=== PATIENT | male | born 1950 | race Caucasian/White ===

== ENCOUNTER → 2018-09-24 | Outpatient (CLI) | payer OTHER | LOC: ULTRA 07:28 | DX: K80.20 Calculus of gallbladder without cholecystitis without obstruction (principal); N13.30 Unspecified hydronephrosis ==

== ENCOUNTER 2019-04-10 05:18 | Inpatient (IN) | payer OTHER ==
[~2019-04-10] VITALS: Ht 188 cm; Wt 121.7 kg
--- NOTE | ~2019-04-10 | O ---
[facility] [place] [address] OPERATIVE REPORT Name: DIVYA STEPHENS Room #: 418-P [facility] M..#: [id number] Admission: 04/10/19 ������������������ Attend Phys: Juan M Mcgraw MD Discharge: ������������������ Date of : 48 Report #: [id number] THIS REPORT FOR: //name// CC: Juan M Thomas MD DATE OF SERVICE: 04/10/2019 PREOPERATIVE DIAGNOSIS: Cholecystitis with cholelithiasis. POSTOPERATIVE DIAGNOSIS: Cholecystitis with cholelithiasis with severe fibrotic reaction. PROCEDURE: Laparoscopic cholecystectomy with cholangiogram and repair of choledochotomy with T-tube. SURGEON: Juan M Mcgraw MD. ANESTHESIA: General. ESTIMATED BLOOD LOSS: 75 mL. FINDINGS: The common bile duct was taken for the cystic duct. Intraoperative cholangiogram showed the dye did flow distally, but not proximally. At this point, the choledochotomy was recognized. The common bile duct was then repaired over T-tube. The common duct was not divided. T-tube cholangiogram looked like good placement of the T-tube. PROCEDURE NOTE: With the patient under general anesthesia, abdomen was prepped and draped in sterile fashion. Curved incision was made above the umbilicus. Fascia identified, grasped with hemostat. Timeout was performed. IV antibiotic was given. The fascia was grasped with hemostat. Fascia was then opened under visualization in midline. 0 Vicryl suture placed on the fascia for retraction. Using the 0 Vicryl suture, abdomen was lifted anteriorly. Veress needle was then placed through peritoneum. Abdominal cavity was insufflated by CO2. After creating pneumoperitoneum, 11 mm trocar was placed into the pneumoperitoneum without harm to underlying tissue. The gallbladder was identified. The gallbladder is contracted and fibrotic. Adhesions were taken down from it. When the gallbladder was lifted cephalad, there was quite a bit of fat at the proximal part of the gallbladder. This fat was dissected close to the gallbladder. A ductal structure was then isolated. The gallbladder was noted to have a stone at the neck of the gallbladder. The cystic duct was found close to the neck of the gallbladder. The cystic duct is isolated. A clip was placed at the cystic duct gallbladder junction. Opening was made in the cystic duct with a scissor. Cholangiogram catheter was placed. The cholangiogram catheter [address] [address] OPERATIVE REPORT Name: DIVYA STEPHENS Room #: 418-P [facility] M..#: [id number] Admission: 04/10/19 ������������������ Attend Phys: Juan M Mcgraw MD Discharge: ������������������ Date of : 48 Report #: [id number] was held with clip. The fluoroscopic cholangiogram showed dye did flow distally, but not proximally. At this point, we realized that the cystic duct was actually the common duct. The clips were removed. The catheter was removed. The opening in the common duct was then visualized. Besides the clips placement in the cystic duct and the common duct, dissected posteriorly, has remained intact. At this point, the gallbladder was dissected down distal to the common duct area and dense fibrosis identified. Dissection was carried out with laparoscopic Peanut to push the neck of the gallbladder laterally. There was a stone identified here. The stone appears to be stuck. The gallbladder looks like it is completely contracted. With pushing and dissection, there is a structure identified laterally, which I thought could be cystic duct, but upon further dissection later on, this was determined to be the cystic artery. A 14-Equatorial [place] T-tube was brought in laparoscopically. This had been trimmed. I put one of the limbs up into the proximal part of the common, so I can kind of tell the common duct was located because at this point, the gallbladder was still stuck or tethered to the common duct. Further blunt dissections pushing the gallbladder away. The cystic duct was located more anterior and then quite densely stuck by the inflammatory reaction. I decided to go ahead and take the stone out also. At this point, I decided to go ahead and put the T-tube in the common duct. The 14 did not seem to fit very well. I went ahead and got a 12-[place]atorial [place] T-tube. The 14 was removed. Again, the T-tube was fashioned and I was able to get the T-tube inside the defect of the common duct. It seated pretty well. I did place a suture superiorly and also inferiorly. This was placed laparoscopically with 4-0 PDS on a small RB taper needle. The knot was created with a knot pusher. I finally got pretty good seal around the T-tube. I was able to then finally dissect out the rest of the gallbladder, removed that stone. This allowed little bit better visualization of the neck of the gallbladder. The artery was identified lateral posteriorly. This was clipped x 2 proximally and then divided. When I divided, I could tell that there was blood from this consistent with backbleeding from the artery. The cystic duct was then eventually teased out also and it was quite small structure. This was clipped x 2 proximally, 1 distally and then divided. The rest of the gallbladder was then freed, placed in specimen bag. The stone that I removed was placed in specimen bag along with the gallbladder retrieved through the 11 mm trocar site, did have to enlarge the incision slightly to get the thick fibrotic gallbladder out. A T-tube cholangiogram was then obtained. The end of the T-tube was brought out through the medial 5-mm trocar. Contrast was injected. With this contrast injection, I can see the proximal ducts filled out. There was also clear bile coming out of the T-tube. There is some leak of the contrast that the T-tube site. The #19 Joseph drain was then placed in Morison's pouch adjacent to the T-tube. Liver bed was checked, hemostasis obtained. The irrigation was aspirated out. Trocars removed. CO2 was evacuated as much as possible. SHE drain and the T-tube was sutured to the skin with 2-0 silk suture. Fascia was closed with [id number] 0 Vicryl x 3 at the umbilicus site and the skin was irrigated. Skin was then closed with 5-0 PDS. Steri-Strip, Band-Aids applied on the trocar site. Where the T-tube and [address] [address] OPERATIVE REPORT Name: DIVYA STEPHENS Room #: 418-P [facility] M.R.#: [id number] Admission: 04/10/19 ������������������ Attend Phys: Juan M Mcgraw MD Discharge: ������������������ Date of : 48 Report #: [id number] SHE drain came out, 4 x 4, OpSite was used for tape. Medium OpSite was used for taping the drain in place. The T-tube was fitted to a gravity drainage bag. The patient was awakened and taken to recovery room. ��������������������������������������������� ���������������������������������������� By: ��������������������������������������������� 2156 2300 Juan M Mcgraw MD /nt
[~2019-04-10 05:18] MED LIST: AVAPRO 150 MG150 MG PO; CO Q-1050 MG PO; CRESTOR20 MG PO; MAXZIDE-25 MG1 EACH PO; MULTIVITAMINS PO
[2019-04-10 11:08] LABS: CALCIUM 9.6 mg/dL (8.5-10.1); CREATININE 1.2 mg/dL (0.7-1.3); POTASSIUM 3.6 mmol/L (3.5-5.1)
[2019-04-10 11:30] VITALS: BP 155/94
--- NOTE | 2019-04-10 12:20 | EKG ---
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 : 1950 Requested By: Juan M Mcgraw Order Number: [id number] MD: George Collins Measurements Intervals [place] Rate: 70 P: 63 IN: 206 QRS: -19 QRSD: 111 T: 48 QT: 414 QTc: 447 Interpretive Statements Sinus rhythm Frequent premature ventricular complexes Borderline left axis deviation Inferior myocardial infarction, age indeterminate Poor R wave progression No previous ECG available for comparison Electronically Signed On 04-10-2019 12:20:30 CDT by George Collins [email or web address] ��������������������������������������������� <ELECTRONICALLY SIGNED> ���������������������������������������� By: George Collins MD, [facility] ��������������������������������������������� 04/10/19 1220 52 George Collins MD, FAC /EPI
--- NOTE | 2019-04-10 17:00 | H ---
[facility] [place] [address] HISTORY AND PHYSICAL Name: DIVYA STEPHENS Room #: 150-4 [facility] M.R.#: [id number] Admission: 04/10/19 ������������������ Attend Phys: Juan M Mcgraw MD Discharge: ������������������ Date of : 48 Report #: [id number] THIS REPORT FOR: //name// CC: Juan M Thomas MD PREOPERATIVE DIAGNOSIS: Cholecystitis with cholelithiasis. HISTORY OF PRESENT ILLNESS: The patient is a 68-year-old who has had epigastric pain for 10-15 years. It usually occurs at nighttime when he is getting ready to go to bed. In the morning, the pain generally has gone. The patient has a complaint of low energy for a couple of days after the episode. Usually he gets it once a year. Since July of last year the patient has had an increase in frequency. The pain is moderate in nature. He has to get up and he goes and then sleeps in his chair. Pain is dull in nature, has associated bloating. No nausea or vomiting. Does have increased gas and burping. The patient does have some looseness of the stool. Last July, the episode came on after eating hot dogs. The patient's ultrasound done 09/2018 did show gallstones with mild gallbladder wall thickening. The patient is recommended to have his gallbladder removed and to treat symptomatic cholecystitis with cholelithiasis. PAST MEDICAL HISTORY: The patient with history of high blood pressure, elevated cholesterol. No heart disease, no diabetes, no lung disease. No liver disease, no kidney disease, no bleeding disorder. No history of blood clot. MEDICATIONS: Irbesartan 150 mg once a day, triamterene/HCTZ 37.5/25 mg a day, rosuvastatin 20 mg, CQ10 50 mg, Alcortin gel. ALLERGIES: He is not allergic to anything. PAST SURGICAL HISTORY: Knee surgery in 1974. Hernia repair in 2011. FAMILY HISTORY: Mother had COPD. Dad of lung cancer. They were both smokers, patient's sibling had colon cancer, metastasized to the liver. No family history of gallbladder disease. SOCIAL HISTORY: The patient is retired. Does not smoke. Drinks about 20 beers a week. REVIEW OF SYSTEMS: No shortness of breath, chest pain, or palpitation. PHYSICAL EXAMINATION: GENERAL: The patient is a well-nourished male in no acute distress. HEENT: Pupils react to light. Extraocular muscles are intact. Oropharynx is clear. NECK: Soft and supple, no masses. [address] [address] HISTORY AND PHYSICAL Name: DIVYA STEPHENS Room #: 150-4 [facility] M.R.#: [id number] Admission: 04/10/19 ������������������ Attend Phys: Juan M Mcgraw MD Discharge: ������������������ Date of : 48 Report #: [id number] LUNGS: Clear. HEART: Regular rate and rhythm. No murmur or gallop. ABDOMEN: Mild tenderness in right upper quadrant. No mass, guarding or rigidity. EXTREMITIES: No cyanosis, clubbing, edema. IMPRESSION: The patient is a 68-year-old with abdominal pain for the last 10-15 years, recently having increased frequency. Usually the pain in the right epigastric area associated with bloating, gas. The patient does have gallstones. In July, he had onset of pain after eating hot dogs. The patient is recommended to undergo laparoscopic cholecystectomy, for treatment of symptomatic cholecystitis with cholelithiasis. Operative procedure was discussed in detail. Risk of bleeding, infection and common bile duct injury and bile leak was discussed. The patient understands the procedure and wishes to proceed. ��������������������������������������������� <ELECTRONICALLY SIGNED> ���������������������������������������� By: Juan M Mcgraw MD ��������������������������������������������� 04/10/19 1700 2131 [id number] Juan M Mcgraw MD /nt
[2019-04-10 18:42] VITALS: BP 143/67
--- NOTE | 2019-04-10 18:49 | NUR ---
RECEIVED PT APPROX 1835. A/O. REFUSES PAIN MEDS THIS TIME. LAP SITES WITH BANDAID CDI. TTUBE TO GRAVITY- BILE NOTED. SHE TO BULB SUCTION. PT RESTING IN BED. NO CONCERNS AT THIS TIME. WILL CONT. TO MONITOR.
[2019-04-10 20:00] VITALS: BP 164/84
[2019-04-10 20:30] VITALS: BP 147/79
[2019-04-10 21:00] VITALS: BP 143/78
[2019-04-11] VITALS: BP 139/62
[2019-04-11 03:15] VITALS: BP 139/86
--- NOTE | 2019-04-11 03:28 | NUR ---
PT IS ALERT AND ORIENTED. VERY PLEASANT AND COOPERATIVE. SCDS IN PLACE. USING URINAL. NPO-DENIES NAUSEA.LAP SITES TO STOMACH LOOK OKAY WITH BANDAIDS ON. SHE WITH SEROSANGUINOUS OUTPUT.PT IS ON SATTING IN THE RANGE OF 95%-96%. AFEBRILE.ENC TO COUGH, DEEP BREATH. IVF INFUSING.NO FURTHER CONCERNS AT THIS TIME.
[2019-04-11 05:19] LABS: HEMATOCRIT 48.8 % (42.0-52.0); HEMOGLOBIN 16.8 gm/dL (14.0-18.0); MCH 31.2 pg (26.0-34.0); MCHC 34.5 g/dL (28.0-37.0); MCV 90.5 fL (80.0-100.0); RBC 5.39 mil/uL (4.50-6.00); WBC 13.6 thou/uL (4.0-11.0)
[2019-04-11 05:49] LABS: ALBUMIN 3.4 g/dL (3.4-5.0); CALCIUM 8.5 mg/dL (8.5-10.1); CREATININE 1.2 mg/dL (0.7-1.3); DIRECT BILIRUBIN 0.1 mg/dL (<0.1-0.3); POTASSIUM 3.7 mmol/L (3.5-5.1); TOTAL BILIRUBIN 0.7 mg/dL (<0.1-1.0); TOTAL PROTEIN 6.8 g/dL (6.4-8.2)
[2019-04-11 09:01] VITALS: BP 151/72
--- NOTE | 2019-04-11 17:12 | NUR ---
ASSUMED CARE AT 0700, SHIFT ASSESSMENT DONE, VSS. WAS NPO THIS AM. DR SANCHEZ SAW THE PATIENT, ADVANCED TO CLEAR LIQUID DIET. TOLERATING WELL. REPORTED PAIN, PRN PAIN MED GIVEN WITH RELIEF. UP WITH STANDBY ASSIST, GOES TO THE BATHROOM TO VOID. T-TUBE HAD 350 ML GREENISH FLUID DRAINAGE AND SHE DRAIN HAD 30 ML OF SEROUS DRAINAGE OUT. WILL CONTINUE TO ASSESS AND ASSIST WITH ADLs NEEDED.
[2019-04-11 17:49] VITALS: BP 142/80
[2019-04-11 19:13] VITALS: BP 136/81
[2019-04-12 04:05] VITALS: BP 133/77
[2019-04-12 05:09] LABS: HEMATOCRIT 45.6 % (42.0-52.0); HEMOGLOBIN 15.5 gm/dL (14.0-18.0); MCHC 33.9 g/dL (28.0-37.0); MCV 91.4 fL (80.0-100.0); RBC 4.99 mil/uL (4.50-6.00); RDW 13.2 % (10.5-14.5); WBC 12.1 thou/uL (4.0-11.0)
[2019-04-12 07:20] VITALS: BP 146/71
--- NOTE | 2019-04-12 07:41 | NUR ---
NOC SHIFT SUMMARY: PT UP AD GREG IN ROOM. VOIDING WITH NO DIFFICULTIES. PT DID NOT REQUIRE ANY PAIN MEDS THRO NOC. TOLERATING CLR LIQUIDS, PLANS TO ADVANCE DIET THIS AM. ADVANCING WITH CARE GOALS.
--- NOTE | 2019-04-12 08:09 | NUR ---
ASSESMENT COMPLETED. VSS. A/O. DENIES PAIN. NO NOTED SOA. NO NV. TOLERATING CLEARS. PT RESTING IN BED. SHE TO BULB SUCTION. TTUBE INTACT. WILL CONT. TO MONITOR.
[2019-04-12 19:19] VITALS: BP 145/76
--- NOTE | 2019-04-13 04:30 | NUR ---
PT DENIED PAIN AT THE START OF SHIFT.DRAINS INTACT.UP WITH A STEADY GAIT.ASSESSMENT COMPLETED.PT RESTING ON HIS BED AT THIS TIME.CALL LIGHT WITHIN REACH.
[2019-04-13 05:22] VITALS: BP 155/74
[2019-04-13 05:50] LABS: HEMATOCRIT 43.9 % (42.0-52.0); HEMOGLOBIN 15.4 gm/dL (14.0-18.0); MCH 31.7 pg (26.0-34.0); MCV 90.6 fL (80.0-100.0); RBC 4.85 mil/uL (4.50-6.00); RDW 12.7 % (10.5-14.5); WBC 9.2 thou/uL (4.0-11.0)
[2019-04-13 06:08] LABS: DIRECT BILIRUBIN 0.3 mg/dL (<0.1-0.3); TOTAL BILIRUBIN 1.3 mg/dL (<0.1-1.0); TOTAL PROTEIN 6.2 g/dL (6.4-8.2)
[2019-04-13 07:00] VITALS: BP 151/81
--- NOTE | 2019-04-13 10:15 | NUR ---
ASSUMED CARE AT 0700, SHIFT ASSESSMENT DONE, MEDS GIVEN, VSS. DENIES ANY PAIN, NAUSEA, VOMITING. UP IN THE CHIAR THIS AM, FULL LIQUID DIET, TOLERATING WELL. SHE AND T-TUBE DRAIN IN PLACE. WILL CONTINUE TO ASSESS AND ASSIST WITH ADLs NEEDED.
[2019-04-13 13:13] VITALS: BP 151/81
--- NOTE | 2019-04-13 13:14 | NUR ---
Case opened to follow for dc planning. Pt is s/p janiya coradoe with two drains in place. He is advancing his diet and activity with possible dc home later today. Pt is a&ox4 and indicates that he lives alone. He is normally independent and active. He drives but can have his nephew take him home today. He is receptive to HH nursing follow up and denies any preference except that they are in network with is insurance plan. He states that he is being told he will have one drain in for approx 6wks. Referral called to [facility] and they can accept for admission and see if tomorrow. The pt has no dme needs. Nursing updated. Will confirm hh referral when dc orders are completed.
--- NOTE | 2019-04-13 17:06 | PATH ---
[facility] [address] [place] [address] PATHOLOGY RPT PROCEDURE Name: SINA STEPHENS Room #: 418-P ADM IN M.R.#: [id number] ������������������ Admission: 04/10/19 ������������������ Date of : 48 Discharge: Report #: [id number] Path Case #: [id number] [facility] Accession Number: [id number] . 01 Material submitted: . gallbladder - GALLBLADDER . 01 Clinical history: . Cholecystitis. . 02 Diagnosis: Gallbladder, cholecystectomy: - Hemorrhagic and gangrenous cholecystitis associated with ulceration. - Cholelithiasis. (IUV:pit 04/13/2019) QTP/04/13/2019 . 02 Electronically signed: . Krissy Barriga MD, Pathologist NPI- [id number] . 01 Gross description: . Received in formalin labeled "Sina Stephens gallbladder" is a previously opened cholecystectomy specimen measuring 5.2 x 2.7 x 2.1 cm. The serosa is pink-berry and ragged and the specimen is opened to reveal pink-brown trabeculated hemorrhagic mucosa without polyps or masses. The average wall thickness is 0.1-0.5 cm. Calculi are present, which are berry-brown and ovoid, measuring in aggregate 3.4 x 3.0 x 0.9 cm, and range from 0.9-1.7 cm in greatest dimension. Pediatric Oncology Nurse sections of the fundus and body and the cystic duct margin (inked black) are submitted in A1. ([facility]; 04/12/2019) SYC/SYC . 02 Pathologist provided ICD-10: K80.18, K82.A1, K82.8 . 02 CPT . 254758 Specimen Comment: A courtesy copy of this report has been sent to Specimen Comment: [phone]. Specimen Comment: Report sent to DR NOLASCO Performed at: [address] [id number] MD Jey Isaacs MD Phone: [phone] Performed at: [address] [address] PATHOLOGY RPT PROCEDURE Name: KATSINAELOISE GRIFFIN Room #: 418-P [facility] M.R.#: [id number] ������������������ Admission: 04/10/19 ������������������ Date of : 48 Discharge: Report #: [id number] Path Case #: [id number] [address], [place], [place] [id number] MD Krissy Barriga MD Phone: [phone]
[2019-04-13 17:08] VITALS: BP 151/81
== END 2019-04-13 17:21 | disposition home health service (06) | DRG 419 ==
LOC: TBA 05:18 → OR 05:18 → 4E 18:29 → OR 18:30 → 4E 04-13 17:21
PROVIDERS: ADMIT Surgery
PROC: 0FT44ZZ Resection of Gallbladder, Percutaneous Endoscopic Approach (ICD-10-PCS; principal; 2019-04-10)
PROC: BF101ZZ Fluoroscopy of Bile Ducts using Low Osmolar Contrast (ICD-10-PCS; principal; 2019-04-10)
DX: K80.10 Calculus of gallbladder with chronic cholecystitis without obstruction (principal); Z82.5 Family history of asthma and other chronic lower respiratory diseases; Z80.1 Family history of malignant neoplasm of trachea, bronchus and lung; Z80.0 Family history of malignant neoplasm of digestive organs
CPT/HCPCS: 10783; 50010; 50101; 50331; 50411; 50555; 50558; 51489; 51687; 51758; 53307; 53310; 53312; 55245; 55317; 56462; 56525; 56526; 62110; 62900; 70005

== ENCOUNTER → 2019-05-21 | Outpatient (CLI) | payer OTHER ==
[~2019-05-21] VITALS: Ht 188 cm; Wt 113.4 kg
[2019-05-21 10:15] VITALS: BP 147/84
[2019-05-21 10:34] VITALS: BP 111/50
== END ==
LOC: CAT 09:41
DX: Z01.818 Encounter for other preprocedural examination (principal); K80.10 Calculus of gallbladder with chronic cholecystitis without obstruction; E78.00 Pure hypercholesterolemia, unspecified; K57.10 Diverticulosis of small intestine without perforation or abscess without bleeding